=== PATIENT | female | born 1965 | race Caucasian/White ===

== ENCOUNTER 2019-08-03 07:25 | Day surgery (SDC) | payer OTHER ==
[2019-07-28 10:55] VITALS: BMI 21.7
[2019-08-03] MEDS ORDERED: LIDOCAINE HCL 2% (50ML VIAL) INF ONE (07:54)
[2019-08-03] MEDS ORDERED: MIDAZOLAM HCL 2 MG/2 ML SINGLE DOSE VIAL ONE (09:31)
[2019-08-03] MEDS ORDERED: ceFAZolin SODIUM 1 GM VIAL ONE (09:31)
[2019-08-03] MEDS ORDERED: PROPOFOL 20 ML ONE (09:32)
[2019-08-03] MEDS ORDERED: LIDOCAINE HCL/PF 2% SDV 5ML VIAL ONE (09:32)
[2019-08-03] MEDS ORDERED: SODIUM CHLORIDE 0.9% P/F 10 ML VIAL IJ ONE (09:32)
[2019-08-03] MEDS ORDERED: ONDANSETRON 4 MG/2 ML VIAL ONE (09:32)
[2019-08-03] MEDS ORDERED: LIDOCAINE HCL 2% (20ML MULTI-DOSE VIAL) ONE (09:37)
[2019-08-03 10:19] VITALS: TEMP 98
[2019-08-03 10:56] VITALS: BP 122/63; PULSE 80
[2019-08-03] MEDS ORDERED: ONDANSETRON 4 MG/2 ML VIAL IVPUSH PRN (11:52)
[2019-08-03] MEDS ORDERED: oxyCODONE HCL 5 MG TABLET PO PRN (11:52)
--- NOTE | 2019-08-03 11:53 | OP ---
DATE OF OPERATION: 08/03/2019 PREOPERATIVE DIAGNOSIS: Right long finger trigger finger. POSTOPERATIVE DIAGNOSIS: Right long finger trigger finger. OPERATIVE PROCEDURE: Right long trigger finger release. SURGEON: Sean Lucas MD. ANESTHESIA: Local with sedation. COMPLICATIONS: None. ESTIMATED BLOOD LOSS: Minimal. INDICATION FOR PROCEDURE: The patient is a 53-year-old female with the above findings, indicated for operative treatment. Risks, benefits, and alternatives were discussed with the patient at length. Proper informed consent was obtained. PROCEDURE: After proper identification of the patient and correct operative site, patient was brought to the operating room and placed supine on the operating table, all bony prominences well padded. Sedation and local anesthesia were given. Right upper extremity was prepped and draped in the usual sterile fashion. A well-padded tourniquet was placed with sterile prep. Esmarch bandage to exsanguinate the right upper extremity was inflated to 250 mmHg. Longitudinal incision was made over the A1 columba to the long finger. The incision was taken sharply through the skin with blunt and sharp dissection to subcutaneous tissue. A1 columba was divided longitudinally. The patient was asked to flex and extend the finger and no further triggering was noted. Wound was irrigated and repaired with 5-0 plain gut suture. Sterile dressing was applied. The patient was reversed from anesthesia and brought to the recovery room in stable condition. She tolerated the procedure well. SEAN LUCAS M.D. [id number]
[2019-08-03] MEDS ORDERED: LACTATED RINGERS SOLUTION 1,000 ML IV SCH (12:00)
== END 2019-08-03 10:55 | disposition home or self-care (01) ==
LOC: FASU 07:25
PROVIDERS: ATTEND Orthopaedic Surgery Hand Surgery
PROC: 0LN70ZZ Release Right Hand Tendon, Open Approach (ICD-10-PCS; principal; 2019-08-03 09:54)
DX: M65.331 Trigger finger, right middle finger (principal)

== ENCOUNTER 2021-09-08 08:11 | Emergency (ER) | payer OTHER ==
[2021-09-08 08:34] VITALS: BP 153/87; PULSE 101; TEMP 99.2; BMI 20.9
== END 2021-09-08 08:37 | disposition home or self-care (01) ==
LOC: FER 08:11
DX: B02.9 Zoster without complications (principal)
CPT/HCPCS: 99281-25

== ENCOUNTER 2022-09-26 21:34 | Inpatient (IN) | payer OTHER ==
[2022-09-26] MEDS ORDERED: ONDANSETRON 4 MG/2 ML VIAL IVPB ONE (22:03)
[2022-09-26] MEDS ORDERED: morphine CARPU-JECT 4 MG/1 ML DISP.SYRIN IVPUSH ONE (22:03)
[2022-09-26] MEDS ORDERED: SODIUM CHLORIDE 1,000 ML IV ONE (22:03)
[2022-09-26] MEDS ORDERED: PANTOPRAZOLE SODIUM 40 MG VIAL IVPUSH ONE (22:05)
[2022-09-26] MEDS ORDERED: ONDANSETRON 4 MG/2 ML VIAL ONE (22:09)
[2022-09-26] MEDS ORDERED: morphine SULFATE 4 MG/ML VIAL ONE (22:09)
[2022-09-26] MEDS ORDERED: PANTOPRAZOLE SODIUM 40 MG VIAL ONE (22:10)
[2022-09-26] MEDS ORDERED: HYDROmorphone HCl 2 MG/ML VIAL IVPUSH STA (22:26)
[2022-09-26] MEDS ORDERED: HYDROmorphone HCL/PF 1 MG/ML VIAL ONE (22:28)
[2022-09-26 22:34] LABS: ALBUMIN 4.6 g/dl (3.4-5.0); BILIRUBIN,TOTAL 0.6 mg/dl (0.2-1); CALCIUM 9.2 mg/dl (8.5-10); CREATININE 0.9 mg/dl (0.55-1.3); TOT PROT 7.8 g/dl (6.4-8.2)
[2022-09-27 00:12] LABS: HEMATOCRIT 40.2 % (32.4-45.2); HEMOGLOBIN 13.6 GM/dL (10.7-15.3); MCH 30.2 pg (25.7-33.7); MCHC 33.8 g/dl (32.0-36.0); MEAN CELL VOLUME 89.2 fl (80-96); MEAN PLT VOLUME 8.5 fl (7.5-11.1); PLATELET COUNT 232 10^3/uL (134-434); RDW 13.4 % (11.6-15.6); WHITE BLOOD COUNT 13.6 K/mm3 (4.0-10.0)
[2022-09-27] MEDS ORDERED: MAG HYDROX/AL HYDROX/SIMETH 30 ML UNIT-DOSE CUP PO ONE (00:32)
[2022-09-27 00:41] LABS: LACTIC ACID 3.6 mmol/L (0.4-2.0)
[2022-09-27] MEDS ORDERED: MAG HYDROX/AL HYDROX/SIMETH 30 ML UNIT-DOSE CUP ONE (00:41)
[2022-09-27] MEDS ORDERED: SODIUM CHLORIDE 1,000 ML IV ONE (00:43)
[2022-09-27 02:29] LABS: URINE APPEARANCE CLEAR; URINE BILIRUBIN NEGATIVE (NEGATIVE); URINE COLOR YELLOW; URINE GLUCOSE (UA) NEGATIVE (NEGATIVE); URINE KETONE 2+ (NEGATIVE); URINE LEUK ESTERASE NEGATIVE (NEGATIVE); URINE NITRITE NEGATIVE (NEGATIVE); URINE PROTEIN NEGATIVE (NEGATIVE); URINE UROBILINOGEN 0.2 mg/dL (0.2-1.0)
[2022-09-27 03:16] LABS: LACTIC ACID 2.9 mmol/L (0.4-2.0)
[2022-09-27] MEDS ORDERED: PIPERACILLIN/TAZOB 4.5 GM 4.5 GM in DEXTROSE 5%-WATER 100 ML IVPB ONE (04:34)
[2022-09-27] MEDS ORDERED: PIPERACILLIN/TAZOBACTAM 4.5 GM VIAL IVPB ONE (04:36)
[2022-09-27 06:24] LABS: LACTIC ACID 3.9 mmol/L (0.4-2.0)
[2022-09-27] MEDS ORDERED: morphine CARPU-JECT 4 MG/1 ML DISP.SYRIN IVPUSH ONE (07:40)
[2022-09-27] MEDS ORDERED: SODIUM CHLORIDE 1,000 ML IV STA (07:40)
[2022-09-27] MEDS ORDERED: ONDANSETRON 4 MG/2 ML VIAL IVPUSH ONE ×2 (07:40→10:30)
[2022-09-27] MEDS ORDERED: morphine SULFATE 4 MG/ML VIAL ONE (07:44)
[2022-09-27] MEDS ORDERED: ONDANSETRON 4 MG/2 ML VIAL ONE (07:44)
[2022-09-27 11:00] LABS: BASO % 0.1 % (0-2.0); HEMOGLOBIN 11.8 GM/dL (10.7-15.3); MCH 30.9 pg (25.7-33.7); MCHC 34.8 g/dl (32.0-36.0); MEAN CELL VOLUME 88.7 fl (80-96); MEAN PLT VOLUME 8.8 fl (7.5-11.1); MONO % 3.6 % (3.8-10.2); NEUT % 88.3 % (42.8-82.8); PLATELET COUNT 210 10^3/uL (134-434); RBC 3.84 M/mm3 (3.60-5.2); RDW 13.4 % (11.6-15.6); WHITE BLOOD COUNT 12.2 K/mm3 (4.0-10.0)
[2022-09-27] MEDS ORDERED: PANTOPRAZOLE SODIUM 40 MG VIAL IVPUSH ONE (11:24)
[2022-09-27] MEDS ORDERED: BISACODYL 10 MG SUPP.RECT PR ONE (11:25)
[2022-09-27] MEDS: ACETAMINOPHEN 1000 MG/100 ML BAG IVPB PRN ×2 (11:38→16:32)
[2022-09-27] MEDS: KETOROLAC TROMETHAMINE 30 MG/1 ML VIAL IVPUSH PRN ×2 (11:41→18:40)
[2022-09-27] MEDS: SODIUM CHLORIDE 1,000 ML IV SCH (11:42)
[2022-09-27] MEDS: POLYETHYLENE GLYCOL (HEALTHYLAX) 3350 17 GM PACKET PO SCH ×2 (13:08→21:13)
[2022-09-27] MEDS ORDERED: metroNIDAZOLE 250 MG TABLET PO SCH (14:00)
[2022-09-27] MEDS: ONDANSETRON 4 MG/2 ML VIAL IVPUSH PRN (15:31)
[2022-09-27] MEDS ORDERED: MINERAL OIL ENEMA 133 ML ENEMA RC ONE (19:04)
[2022-09-27] MEDS ORDERED: LORazepam 2 MG/ML SDV VIAL IVPUSH ONE (19:45)
[2022-09-27] MEDS: LOSARTAN POTASSIUM 25 MG TABLET PO SCH (21:13)
[2022-09-27] MEDS: AMPICILLIN NA/SULBACTAM NA 3 GM in SODIUM CHLORIDE 100 ML IVPB SCH (21:13)
[2022-09-27] MEDS ORDERED: CIPROFLOXACIN 500 MG TABLET (RESTRICTED TO ID) PO SCH (22:00)
[2022-09-28] MEDS: KETOROLAC TROMETHAMINE 30 MG/1 ML VIAL IVPUSH SCH ×9 (00:38→23:22)
[2022-09-28] MEDS: AMPICILLIN NA/SULBACTAM NA 3 GM in SODIUM CHLORIDE 100 ML IVPB SCH ×4 (02:59→20:24)
[2022-09-28] MEDS: ACETAMINOPHEN 1000 MG/100 ML BAG IVPB PRN (03:39)
[2022-09-28 08:37] LABS: ALBUMIN 3.8 g/dl (3.4-5.0); BILIRUBIN,TOTAL 0.8 mg/dl (0.2-1); CALCIUM 8.5 mg/dl (8.5-10); CREATININE 0.6 mg/dl (0.55-1.3); PHOSPHOROUS 3.2 mg/dl (2.5-4.9); TOT PROT 6.5 g/dl (6.4-8.2)
[2022-09-28 09:29] LABS: BASO % 0.1 % (0-2.0); EOS % 0.1 % (0-4.5); HEMATOCRIT 38.2 % (32.4-45.2); HEMOGLOBIN 13.1 GM/dL (10.7-15.3); LYMPH % 14.6 % (8-40); MCH 30.6 pg (25.7-33.7); MCHC 34.4 g/dl (32.0-36.0); MEAN CELL VOLUME 88.9 fl (80-96); MEAN PLT VOLUME 8.2 fl (7.5-11.1); MONO % 8.9 % (3.8-10.2); NEUT % 76.3 % (42.8-82.8); PLATELET COUNT 216 10^3/uL (134-434); RDW 13.5 % (11.6-15.6); WHITE BLOOD COUNT 10.4 K/mm3 (4.0-10.0)
[2022-09-28] MEDS: ONDANSETRON 4 MG/2 ML VIAL IVPUSH PRN ×2 (10:16→16:26)
[2022-09-28] MEDS: POLYETHYLENE GLYCOL (HEALTHYLAX) 3350 17 GM PACKET PO SCH ×2 (10:17→21:23)
[2022-09-28] MEDS: ATORVASTATIN CA 20 MG TABLET (FP) PO SCH (10:18)
[2022-09-28] MEDS: SODIUM CHLORIDE 1,000 ML IV SCH (13:02)
[2022-09-28] MEDS ORDERED: ACETAMINOPHEN 1000 MG/100 ML BAG IVPB PRN (13:13)
[2022-09-28 14:05] LABS: ERYTHROCYTE SEDIMENTATION RATE 7 mm/hr (0-30)
[2022-09-28] MEDS: LOSARTAN POTASSIUM 25 MG TABLET PO SCH (21:23)
[2022-09-29] MEDS: ONDANSETRON 4 MG/2 ML VIAL IVPUSH PRN (01:46)
[2022-09-29] MEDS: AMPICILLIN NA/SULBACTAM NA 3 GM in SODIUM CHLORIDE 100 ML IVPB SCH ×4 (03:05→21:51)
[2022-09-29] MEDS: KETOROLAC TROMETHAMINE 30 MG/1 ML VIAL IVPUSH SCH ×2 (07:04→09:14)
[2022-09-29 07:43] LABS: CALCIUM 8.6 mg/dl (8.5-10); CREATININE 0.8 mg/dl (0.55-1.3)
[2022-09-29 09:15] LABS: BASO % 0.3 % (0-2.0); HEMATOCRIT 43.6 % (32.4-45.2); HEMOGLOBIN 15.3 GM/dL (10.7-15.3); LYMPH % 16.3 % (8-40); MCHC 35.1 g/dl (32.0-36.0); MEAN CELL VOLUME 88.3 fl (80-96); MEAN PLT VOLUME 8.1 fl (7.5-11.1); MONO % 18.4 % (3.8-10.2); PLATELET COUNT 249 10^3/uL (134-434); RBC 4.94 M/mm3 (3.60-5.2); RDW 13.3 % (11.6-15.6); WHITE BLOOD COUNT 5.1 K/mm3 (4.0-10.0)
[2022-09-29] MEDS: ATORVASTATIN CA 20 MG TABLET (FP) PO SCH (09:15)
[2022-09-29] MEDS ORDERED: ACETAMINOPHEN 1000 MG/100 ML BAG IVPB PRN (09:21)
[2022-09-29] MEDS ORDERED: ENOXAPARIN NA (PORCINE) 40 MG/0.4 ML DISP.SYRIN SQ SCH (10:00)
[2022-09-29] MEDS: KETOROLAC TROMETHAMINE 30 MG/1 ML VIAL IVPUSH PRN (17:05)
[2022-09-29] MEDS: SODIUM CHLORIDE 1,000 ML IV SCH (17:07)
[2022-09-29] MEDS: LOSARTAN POTASSIUM 25 MG TABLET PO SCH (21:58)
[2022-09-30] MEDS: AMPICILLIN NA/SULBACTAM NA 3 GM in SODIUM CHLORIDE 100 ML IVPB SCH ×4 (03:01→20:30)
[2022-09-30 08:23] LABS: CALCIUM 8.4 mg/dl (8.5-10); CREATININE 0.7 mg/dl (0.55-1.3); MAGNESIUM 2.3 mg/dL (1.8-2.4); PHOSPHOROUS 4.1 mg/dl (2.5-4.9)
[2022-09-30 09:10] LABS: BASO % 0.1 % (0-2.0); HEMATOCRIT 38.7 % (32.4-45.2); HEMOGLOBIN 13.8 GM/dL (10.7-15.3); LYMPH % 16.4 % (8-40); MCH 31.5 pg (25.7-33.7); MCHC 35.7 g/dl (32.0-36.0); MEAN CELL VOLUME 88.3 fl (80-96); MEAN PLT VOLUME 8.5 fl (7.5-11.1); NEUT % 65.5 % (42.8-82.8); PLATELET COUNT 243 10^3/uL (134-434); RBC 4.38 M/mm3 (3.60-5.2); RDW 13.2 % (11.6-15.6); WHITE BLOOD COUNT 4.9 K/mm3 (4.0-10.0)
[2022-09-30] MEDS: ONDANSETRON 4 MG/2 ML VIAL IVPUSH PRN (09:26)
[2022-09-30] MEDS: ATORVASTATIN CA 20 MG TABLET (FP) PO SCH (09:26)
[2022-09-30] MEDS: KETOROLAC TROMETHAMINE 30 MG/1 ML VIAL IVPUSH PRN ×2 (09:27→21:48)
[2022-09-30] MEDS: KCL 10 MEQ IVPB 10 MEQ/100 ML INFUS.BAG IVPB SCH ×3 (11:27→15:30)
[2022-09-30] MEDS: LOSARTAN POTASSIUM 25 MG TABLET PO SCH (21:19)
[2022-10-01] MEDS: AMPICILLIN NA/SULBACTAM NA 3 GM in SODIUM CHLORIDE 100 ML IVPB SCH ×4 (02:28→20:44)
[2022-10-01] MEDS: KETOROLAC TROMETHAMINE 30 MG/1 ML VIAL IVPUSH PRN (06:00)
[2022-10-01] MEDS ORDERED: SODIUM CHLORIDE 1,000 ML with POTASSIUM CHLORIDE 20 MEQ IV SCH (11:05)
[2022-10-01] MEDS: SODIUM CHLORIDE 0.9%/KCL 20 MEQ/1,000 ML INFUS.BAG IV SCH (11:24)
[2022-10-01] MEDS: ATORVASTATIN CA 20 MG TABLET (FP) PO SCH (11:24)
[2022-10-01 11:48] LABS: CALCIUM 8.3 mg/dl (8.5-10); CREATININE 0.6 mg/dl (0.55-1.3); MAGNESIUM 2.3 mg/dL (1.8-2.4); PHOSPHOROUS 3.4 mg/dl (2.5-4.9)
[2022-10-01 12:21] LABS: BASO % 0.3 % (0-2.0); EOS % 0.2 % (0-4.5); HEMATOCRIT 38.4 % (32.4-45.2); HEMOGLOBIN 13.3 GM/dL (10.7-15.3); LYMPH % 20.5 % (8-40); MCHC 34.7 g/dl (32.0-36.0); MEAN CELL VOLUME 89.4 fl (80-96); MEAN PLT VOLUME 8.3 fl (7.5-11.1); MONO % 12.1 % (3.8-10.2); NEUT % 66.9 % (42.8-82.8); PLATELET COUNT 233 10^3/uL (134-434); RBC 4.29 M/mm3 (3.60-5.2); RDW 13.2 % (11.6-15.6); WHITE BLOOD COUNT 6.5 K/mm3 (4.0-10.0)
[2022-10-01] MEDS: KCL 10 MEQ IVPB 10 MEQ/100 ML INFUS.BAG IVPB SCH ×2 (17:21→20:43)
[2022-10-01] MEDS: LOSARTAN POTASSIUM 25 MG TABLET PO SCH (21:54)
[2022-10-02] MEDS: AMPICILLIN NA/SULBACTAM NA 3 GM in SODIUM CHLORIDE 100 ML IVPB SCH ×4 (02:00→21:25)
[2022-10-02] MEDS: SODIUM CHLORIDE 0.9%/KCL 20 MEQ/1,000 ML INFUS.BAG IV SCH ×2 (06:29→15:00)
[2022-10-02 08:45] LABS: ALBUMIN 3.3 g/dl (3.4-5.0); CALCIUM 8.4 mg/dl (8.5-10); CREATININE 0.6 mg/dl (0.55-1.3); MAGNESIUM 2.1 mg/dL (1.8-2.4); TOT PROT 6.1 g/dl (6.4-8.2)
[2022-10-02 09:22] LABS: HEMOGLOBIN 13.1 GM/dL (10.7-15.3); MCH 31.1 pg (25.7-33.7); MCHC 34.5 g/dl (32.0-36.0); MEAN CELL VOLUME 89.9 fl (80-96); MEAN PLT VOLUME 8.5 fl (7.5-11.1); PLATELET COUNT 245 10^3/uL (134-434); RBC 4.23 M/mm3 (3.60-5.2); RDW 13.3 % (11.6-15.6); WHITE BLOOD COUNT 8.3 K/mm3 (4.0-10.0)
[2022-10-02] MEDS: ATORVASTATIN CA 20 MG TABLET (FP) PO SCH (09:38)
[2022-10-02] MEDS ORDERED: POTASSIUM CHLORIDE ORAL LIQUID 20 MEQ/15 ML PO ONE (16:40)
[2022-10-02] MEDS ORDERED: MELATONIN 5 MG TABLETS PO PRN (18:12)
[2022-10-02] MEDS: LOSARTAN POTASSIUM 25 MG TABLET PO SCH (21:26)
[2022-10-02] MEDS: KETOROLAC TROMETHAMINE 30 MG/1 ML VIAL IVPUSH PRN (21:27)
[2022-10-03] MEDS: AMPICILLIN NA/SULBACTAM NA 3 GM in SODIUM CHLORIDE 100 ML IVPB SCH ×4 (03:23→21:33)
[2022-10-03 08:19] LABS: ALBUMIN 3.2 g/dl (3.4-5.0); BILIRUBIN,TOTAL 0.9 mg/dl (0.2-1); CALCIUM 8.3 mg/dl (8.5-10); CREATININE 0.5 mg/dl (0.55-1.3); TOT PROT 5.8 g/dl (6.4-8.2)
[2022-10-03] MEDS ORDERED: POTASSIUM CHLORIDE ORAL LIQUID 20 MEQ/15 ML PO ONE (08:48)
[2022-10-03 09:21] LABS: BASO % 0.2 % (0-2.0); EOS % 0.4 % (0-4.5); HEMATOCRIT 38.6 % (32.4-45.2); HEMOGLOBIN 13.1 GM/dL (10.7-15.3); LYMPH % 14.6 % (8-40); MCH 30.4 pg (25.7-33.7); MCHC 33.9 g/dl (32.0-36.0); MEAN CELL VOLUME 89.8 fl (80-96); MEAN PLT VOLUME 7.9 fl (7.5-11.1); MONO % 11.9 % (3.8-10.2); NEUT % 72.9 % (42.8-82.8); PLATELET COUNT 228 10^3/uL (134-434); RBC 4.29 M/mm3 (3.60-5.2); RDW 13.4 % (11.6-15.6); WHITE BLOOD COUNT 8.9 K/mm3 (4.0-10.0)
[2022-10-03] MEDS: ATORVASTATIN CA 20 MG TABLET (FP) PO SCH (09:42)
[2022-10-03] MEDS: SODIUM CHLORIDE 0.9%/KCL 20 MEQ/1,000 ML INFUS.BAG IV SCH (16:21)
[2022-10-03] MEDS: LOSARTAN POTASSIUM 25 MG TABLET PO SCH (21:33)
[2022-10-03] MEDS ORDERED: ACETAMINOPHEN 1000 MG/100 ML BAG IVPB ONE (23:27)
[2022-10-04] MEDS: AMPICILLIN NA/SULBACTAM NA 3 GM in SODIUM CHLORIDE 100 ML IVPB SCH ×4 (02:55→21:33)
[2022-10-04] MEDS: ATORVASTATIN CA 20 MG TABLET (FP) PO SCH (09:36)
[2022-10-04] MEDS ORDERED: KCL 10 MEQ IVPB 10 MEQ/100 ML INFUS.BAG IVPB SCH (15:15)
[2022-10-04] MEDS: SODIUM CHLORIDE 0.9%/KCL 20 MEQ/1,000 ML INFUS.BAG IV SCH (15:23)
[2022-10-04] MEDS ORDERED: ACETAMINOPHEN 1000 MG/100 ML BAG IVPB PRN (15:25)
[2022-10-04] MEDS: KCL 10 MEQ IVPB 10 MEQ/100 ML INFUS.BAG IVPB SCH ×3 (15:50→17:58)
[2022-10-04] MEDS: LOSARTAN POTASSIUM 25 MG TABLET PO SCH (21:33)
[2022-10-05] MEDS: AMPICILLIN NA/SULBACTAM NA 3 GM in SODIUM CHLORIDE 100 ML IVPB SCH ×4 (03:48→21:55)
[2022-10-05 09:17] LABS: ALBUMIN 3.2 g/dl (3.4-5.0); BILIRUBIN,TOTAL 0.7 mg/dl (0.2-1); CALCIUM 8.6 mg/dl (8.5-10); CREATININE 0.5 mg/dl (0.55-1.3); MAGNESIUM 1.7 mg/dL (1.8-2.4); TOT PROT 5.9 g/dl (6.4-8.2)
[2022-10-05] MEDS: ATORVASTATIN CA 20 MG TABLET (FP) PO SCH (09:26)
[2022-10-05] MEDS ORDERED: MAGNESIUM 1GM/D5W - 1 GM/100 ML IVPB IVPB ONE (10:15)
[2022-10-05] MEDS ORDERED: D5-LR+20 MEQ KCL - 20 MEQ/1,000 ML INFUS.BAG IV SCH (10:15)
[2022-10-05] MEDS ORDERED: DEXTROSE 5%-LACTATED RINGERS 1,000 ML with POTASSIUM CHLORIDE 20 MEQ IV SCH (10:39)
[2022-10-05 10:59] LABS: BASO % 0.2 % (0-2.0); EOS % 0.8 % (0-4.5); HEMATOCRIT 38.3 % (32.4-45.2); HEMOGLOBIN 13.1 GM/dL (10.7-15.3); LYMPH % 22.6 % (8-40); MCHC 34.3 g/dl (32.0-36.0); MEAN CELL VOLUME 90.4 fl (80-96); MEAN PLT VOLUME 8.6 fl (7.5-11.1); MONO % 8.8 % (3.8-10.2); NEUT % 67.6 % (42.8-82.8); PLATELET COUNT 254 10^3/uL (134-434); RBC 4.23 M/mm3 (3.60-5.2); RDW 13.2 % (11.6-15.6); WHITE BLOOD COUNT 9.5 K/mm3 (4.0-10.0)
[2022-10-05 11:11] LABS: ALBUMIN 3.4 g/dl (3.4-5.0); BILIRUBIN,TOTAL 0.7 mg/dl (0.2-1); CALCIUM 8.6 mg/dl (8.5-10); CREATININE 0.6 mg/dl (0.55-1.3); TOT PROT 6.1 g/dl (6.4-8.2)
[2022-10-05 12:23] LABS: PHOSPHOROUS 3.1 mg/dl (2.5-4.9)
[2022-10-05 13:58] LABS: VENOUS BASE EXCESS -20.7 mmol/L (-2-2); VENOUS O2 SATURATION 97.9 % (70-80); VENOUS PCO2 30.6 mmHg (38-52)
[2022-10-05 14:03] LABS: VENOUS PH 7.056 (7.310-7.410)
[2022-10-05 14:29] LABS: LACTIC ACID 6.3 mmol/L (0.4-2.0)
[2022-10-05 18:30] LABS: VENOUS BASE EXCESS -7.4 mmol/L (-2-2); VENOUS O2 SATURATION 41.5 % (70-80); VENOUS PCO2 31.2 mmHg (38-52); VENOUS PH 7.35 (7.310-7.410)
[2022-10-05] MEDS ORDERED: DEXTROSE 5%-LACTATED RINGERS 1,000 ML IV SCH (18:30)
[2022-10-05 18:54] LABS: CALCIUM 8.2 mg/dL (8.5-10.1)
[2022-10-05 18:55] LABS: ALBUMIN 3.1 g/dl (3.4-5.0); BLOOD UREA NITROGEN 6.4 mg/dL (7-18)
[2022-10-05 18:58] LABS: CREATININE 0.4 mg/dL (0.55-1.3)
[2022-10-05] MEDS ORDERED: MELATONIN 5 MG TABLETS PO PRN (18:58)
[2022-10-05] MEDS ORDERED: ONDANSETRON 4 MG/2 ML VIAL IVPUSH PRN (18:58)
[2022-10-05 19:00] LABS: BILIRUBIN,TOTAL 0.4 mg/dL (0.2-1); TOT PROT 6.2 g/dl (6.4-8.2)
[2022-10-05 19:39] LABS: MAGNESIUM 1.8 mg/dL (1.8-2.4)
[2022-10-05 19:43] LABS: PHOSPHOROUS 2.4 mg/dL (2.5-4.9)
[2022-10-05] MEDS ORDERED: ACETAMINOPHEN 1000 MG/100 ML BAG IVPB PRN (21:52)
[2022-10-05] MEDS: MUPIROCIN 2% TOPICAL OINTMENT FOR DECOLONIZATION NS SCH (21:55)
[2022-10-05] MEDS ORDERED: CHLORHEXIDINE GLUCONATE 4% CLEANSER FOR DECOLONIZATION TP SCH (22:00)
[2022-10-05] MEDS ORDERED: LOSARTAN POTASSIUM 25 MG TABLET PO SCH (22:00)
[2022-10-06] MEDS: AMPICILLIN NA/SULBACTAM NA 3 GM in SODIUM CHLORIDE 100 ML IVPB SCH ×4 (02:25→21:54)
[2022-10-06 07:40] LABS: BASO % 0.2 % (0-2.0); EOS % 0.7 % (0-4.5); HEMATOCRIT 39.6 % (32.4-45.2); MCH 31.2 pg (25.7-33.7); MCHC 35.4 g/dl (32.0-36.0); MEAN CELL VOLUME 88.2 fl (80-96); MEAN PLT VOLUME 8.2 fl (7.5-11.1); MONO % 11.4 % (3.8-10.2); NEUT % 68.7 % (42.8-82.8); PLATELET COUNT 288 10^3/uL (134-434); RBC 4.48 M/mm3 (3.60-5.2); RDW 12.8 % (11.6-15.6); WHITE BLOOD COUNT 9.2 K/mm3 (4.0-10.0)
[2022-10-06 08:01] LABS: PHOSPHOROUS 2.3 mg/dL (2.5-4.9)
[2022-10-06 09:15] LABS: ALBUMIN 3.1 g/dl (3.4-5.0); BILIRUBIN,TOTAL 0.5 mg/dL (0.2-1); CALCIUM 8.8 mg/dL (8.5-10.1); CREATININE 0.4 mg/dL (0.55-1.3); MAGNESIUM 1.8 mg/dL (1.8-2.4)
[2022-10-06] MEDS: MUPIROCIN 2% TOPICAL OINTMENT FOR DECOLONIZATION NS SCH (09:26)
[2022-10-06] MEDS ORDERED: PANTOPRAZOLE SODIUM 40 MG VIAL IVPUSH SCH (10:00)
[2022-10-06] MEDS ORDERED: MELATONIN 5 MG TABLETS PO PRN (12:17)
[2022-10-06] MEDS ORDERED: ACETAMINOPHEN 1000 MG/100 ML BAG IVPB PRN (12:17)
[2022-10-06] MEDS ORDERED: ONDANSETRON 4 MG/2 ML VIAL IVPUSH PRN (12:17)
[2022-10-06] MEDS: DEXTROSE 5%-LACTATED RINGERS 1,000 ML IV SCH ×2 (12:53→15:45)
[2022-10-06] MEDS: ATORVASTATIN CA 20 MG TABLET (FP) PO SCH ×2 (21:45→21:55)
[2022-10-06] MEDS: LOSARTAN POTASSIUM 25 MG TABLET PO SCH (21:55)
[2022-10-06] MEDS ORDERED: ATORVASTATIN CA 20 MG TABLET (FP) PO SCH (22:00)
[2022-10-06] MEDS ORDERED: CHLORHEXIDINE GLUCONATE 4% CLEANSER FOR DECOLONIZATION TP SCH (22:00)
[2022-10-06] MEDS ORDERED: MUPIROCIN 2% TOPICAL OINTMENT FOR DECOLONIZATION NS SCH (22:00)
[2022-10-07] MEDS: AMPICILLIN NA/SULBACTAM NA 3 GM in SODIUM CHLORIDE 100 ML IVPB SCH ×2 (02:13→09:59)
[2022-10-07 06:10] VITALS: RESP 18
[2022-10-07] MEDS ORDERED: NAPH,MB-DB/K PH,MBDB POWDER PACKET PO ONE (08:00)
[2022-10-07] MEDS ORDERED: PANTOPRAZOLE SODIUM 40 MG VIAL IVPUSH SCH (10:00)
[2022-10-07] MEDS: DEXTROSE 5%-LACTATED RINGERS 1,000 ML IV SCH ×2 (10:00→14:29)
[2022-10-07] MEDS: POLYETHYLENE GLYCOL (HEALTHYLAX) 3350 17 GM PACKET PO SCH (10:01)
[2022-10-07] MEDS: ENOXAPARIN NA (PORCINE) 40 MG/0.4 ML DISP.SYRIN SQ SCH (10:01)
[2022-10-07] MEDS ORDERED: PANTOPRAZOLE 40 MG TABLET PO SCH (10:29)
[2022-10-07 14:31] VITALS: BMI 21.2
[2022-10-07] MEDS: ATORVASTATIN CA 20 MG TABLET (FP) PO SCH (22:17)
[2022-10-07] MEDS: LOSARTAN POTASSIUM 25 MG TABLET PO SCH (22:18)
[2022-10-08 06:15] VITALS: PULSE 83
[2022-10-08] MEDS: DEXTROSE 5%-LACTATED RINGERS 1,000 ML IV SCH (06:16)
[2022-10-08 08:23] LABS: BASO % 0.2 % (0-2.0); HEMATOCRIT 37.4 % (32.4-45.2); HEMOGLOBIN 12.8 GM/dL (10.7-15.3); MCH 30.3 pg (25.7-33.7); MCHC 34.3 g/dl (32.0-36.0); MEAN CELL VOLUME 88.2 fl (80-96); MEAN PLT VOLUME 7.9 fl (7.5-11.1); MONO % 10.8 % (3.8-10.2); PLATELET COUNT 261 10^3/uL (134-434); RBC 4.24 M/mm3 (3.60-5.2); RDW 13.2 % (11.6-15.6); WHITE BLOOD COUNT 7.1 K/mm3 (4.0-10.0)
[2022-10-08 08:39] LABS: CALCIUM 7.9 mg/dL (8.5-10.1)
[2022-10-08 08:40] LABS: ALBUMIN 2.7 g/dl (3.4-5.0); BLOOD UREA NITROGEN 3.8 mg/dL (7-18); MAGNESIUM 1.4 mg/dL (1.8-2.4)
[2022-10-08 08:43] LABS: CREATININE 0.6 mg/dL (0.55-1.3); PHOSPHOROUS 3.4 mg/dL (2.5-4.9)
[2022-10-08 08:45] LABS: BILIRUBIN,TOTAL 0.3 mg/dL (0.2-1); TOT PROT 5.3 g/dl (6.4-8.2)
[2022-10-08] MEDS ORDERED: MAGNESIUM 1GM/D5W 100ML - 100 ML IVPB IVPB ONE ×2 (09:15→13:00)
[2022-10-08] MEDS ORDERED: KCL 10 MEQ IVPB 10 MEQ/100 ML INFUS.BAG IVPB SCH (09:15)
[2022-10-08] MEDS ORDERED: POTASSIUM CHLORIDE TABS 20 MEQ TABLET.ER (FP) PO ONE (09:15)
[2022-10-08 09:18] VITALS: BP 149/84; TEMP 98.9
[2022-10-08] MEDS ORDERED: ZINC OXIDE/PANTHENOL/VITAMIN E 56 GM TUBE TP SCH (10:00)
[2022-10-08] MEDS: ENOXAPARIN NA (PORCINE) 40 MG/0.4 ML DISP.SYRIN SQ SCH (10:04)
[2022-10-08] MEDS: POLYETHYLENE GLYCOL (HEALTHYLAX) 3350 17 GM PACKET PO SCH (10:04)
[2022-10-08] MEDS ORDERED: POTASSIUM CHLORIDE ORAL LIQUID 20 MEQ/15 ML PO ONE (13:00)
== END 2022-10-08 14:51 | disposition home or self-care (01) | DRG 244 ==
LOC: FER 21:34 → UNDOADMIN 09-27 06:47 → FM/S 09-27 06:47 → INTOOBSV 09-27 11:18 → OBSVTOIN 09-29 12:45 → JICU 10-05 18:14 → J7W 10-06 14:12
PROVIDERS: ADMIT Internal Medicine; ATTEND Internal Medicine
DX: K57.92 Diverticulitis of intestine, part unspecified, without perforation or abscess without bleeding (principal); K56.600 Partial intestinal obstruction, unspecified as to cause; K59.00 Constipation, unspecified; I10 Essential (primary) hypertension; E78.5 Hyperlipidemia, unspecified; E87.6 Hypokalemia; E83.42 Hypomagnesemia; E87.20 Acidosis, unspecified
CPT/HCPCS: 36415; 71046-TC-FY; 74018-TC-FY; 74019-TC-FY; 74177-TC; 74250-TC-FY; 80048; 80053; 81003; 82550; 82728; 82803; 82962; 83605; 83690; 83735; 83880; 84100; 85025; 85027; 85651; 86140; 93005; 99285-25; C9803-CS; G0378; Q9967; U0003; U0005

== ENCOUNTER 2022-10-12 19:29 | Inpatient (IN) | payer OTHER ==
[2022-10-12] MEDS ORDERED: ONDANSETRON 4 MG/2 ML VIAL IVPUSH ONE (19:46)
[2022-10-12] MEDS ORDERED: ACETAMINOPHEN 1000 MG/100 ML BAG IVPB ONE (19:46)
[2022-10-12] MEDS ORDERED: SODIUM CHLORIDE 0.9% 500 ML INFUS.BAG IV ONE ×2 (19:46→22:15)
[2022-10-12] MEDS ORDERED: ACETAMINOPHEN INJECTION 100 ML IVPB ONE (20:06)
[2022-10-12] MEDS ORDERED: ONDANSETRON 4 MG/2 ML VIAL ONE (20:06)
[2022-10-12] MEDS ORDERED: morphine CARPU-JECT 2 MG/1 ML DISP.SYRIN IVPUSH ONE ×2 (20:17→21:57)
[2022-10-12 20:28] LABS: HEMOGLOBIN 12.8 GM/dL (10.7-15.3); MCHC 33.7 g/dl (32.0-36.0); MEAN CELL VOLUME 89.2 fl (80-96); MEAN PLT VOLUME 7.6 fl (7.5-11.1); PLATELET COUNT 437 10^3/uL (134-434); RBC 4.26 M/mm3 (3.60-5.2); RDW 13.8 % (11.6-15.6); WHITE BLOOD COUNT 14.3 K/mm3 (4.0-10.0)
[2022-10-12 20:49] LABS: BLOOD UREA NITROGEN 12.4 mg/dL (7-18); MAGNESIUM 1.7 mg/dL (1.8-2.4)
[2022-10-12 20:51] LABS: CREATININE 0.7 mg/dL (0.55-1.3)
[2022-10-12 20:53] LABS: BILIRUBIN,TOTAL 0.4 mg/dL (0.2-1); TOT PROT 7.2 g/dl (6.4-8.2)
[2022-10-12] MEDS ORDERED: MAGNESIUM SULF 50% (8.12 MEQ/2 ML-1 GM VIAL) IVPB ONE (21:04)
[2022-10-12] MEDS ORDERED: AMPICILLIN NA/SULBACTAM NA 1.5 GM in SODIUM CHLORIDE 100 ML IVPB ONE (21:14)
[2022-10-12 21:15] LABS: ANISOCYTOSIS 0; MACROCYTOSIS 0
[2022-10-12] MEDS ORDERED: MAGNESIUM SULFATE IN WATER 2 GM/50 ML IVPB IVPB ONE (21:21)
[2022-10-12 22:14] LABS: ALBUMIN 3.8 g/dl (3.4-5.0); CALCIUM 9.7 mg/dL (8.5-10.1); LACTIC ACID 3.6 mmol/L (0.4-2.0)
[2022-10-12 22:20] LABS: URINE APPEARANCE CLEAR; URINE BILIRUBIN NEGATIVE (NEGATIVE); URINE COLOR YELLOW; URINE GLUCOSE (UA) NEGATIVE (NEGATIVE); URINE KETONE 1+ (NEGATIVE); URINE LEUK ESTERASE NEGATIVE (NEGATIVE); URINE NITRITE NEGATIVE (NEGATIVE); URINE PROTEIN NEGATIVE (NEGATIVE); URINE UROBILINOGEN 0.2 mg/dL (0.2-1.0)
[2022-10-12 22:50] LABS: COCAINE, UR NEGATIVE (NEGATIVE); METHADONE, UR NEGATIVE (NEGATIVE); URINE BENZODIAZEPINES NEGATIVE (NEGATIVE)
[2022-10-12 22:51] LABS: PHENCYCLIDINE,URINE NEGATIVE (NEGATIVE)
[2022-10-12 22:52] LABS: OPIATES, URI POSITIVE (NEGATIVE); URINE AMPHETAMINES NEGATIVE (NEGATIVE); URINE BARBITURATES NEGATIVE (NEGATIVE)
[2022-10-12 23:16] LABS: BLOOD UREA NITROGEN 9.1 mg/dL (7-18)
[2022-10-12 23:19] LABS: CREATININE 0.4 mg/dL (0.55-1.3)
[2022-10-12 23:38] LABS: CALCIUM 8.2 mg/dL (8.5-10.1)
[2022-10-13] MEDS ORDERED: KETOROLAC TROMETHAMINE 30 MG/1 ML VIAL ONE (01:11)
[2022-10-13] MEDS ORDERED: POLYETHYLENE GLYCOL (HEALTHYLAX) 3350 17 GM PACKET PO SCH ×2 (01:15→07:45)
[2022-10-13] MEDS: KETOROLAC TROMETHAMINE 30 MG/1 ML VIAL IVPUSH PRN ×3 (01:16→22:29)
[2022-10-13] MEDS: ACETAMINOPHEN 1000 MG/100 ML BAG IVPB PRN ×2 (09:59→18:38)
[2022-10-13] MEDS: ENOXAPARIN NA (PORCINE) 40 MG/0.4 ML DISP.SYRIN SQ SCH (10:17)
[2022-10-13] MEDS: LACTATED RINGERS SOLUTION 1,000 ML/1,000 ML INFUS.BAG IV SCH ×2 (10:17→22:42)
[2022-10-13] MEDS: CEFTRIAXONE 1 GM in DEXTROSE 5%-WATER - 50 ML IVPB SCH (10:47)
[2022-10-13 11:56] LABS: BASO % 0.2 % (0-2.0); EOS % 0.1 % (0-4.5); HEMATOCRIT 37.7 % (32.4-45.2); HEMOGLOBIN 12.7 GM/dL (10.7-15.3); LYMPH % 7.5 % (8-40); MCH 30.1 pg (25.7-33.7); MCHC 33.7 g/dl (32.0-36.0); MEAN CELL VOLUME 89.4 fl (80-96); MEAN PLT VOLUME 8.1 fl (7.5-11.1); MONO % 7.7 % (3.8-10.2); NEUT % 84.5 % (42.8-82.8); PLATELET COUNT 418 10^3/uL (134-434); RBC 4.22 M/mm3 (3.60-5.2); RDW 13.6 % (11.6-15.6)
[2022-10-13 11:59] LABS: CHLORIDE 105 mmol/L (98-107); SODIUM 136 mmol/L (136-145)
[2022-10-13 12:00] LABS: MAGNESIUM 2.4 mg/dL (1.8-2.4)
[2022-10-13 12:01] LABS: ALBUMIN 3.3 g/dl (3.4-5.0); ANION GAP 6 MMOL/L (8-16); BLOOD UREA NITROGEN 7.4 mg/dL (7-18); CALCIUM 8.9 mg/dL (8.5-10.1); CO2 24 mmol/L (21-32)
[2022-10-13 12:02] LABS: GLUCOSE,RANDOM 115 mg/dL (74-106)
[2022-10-13 12:04] LABS: CREATININE 0.5 mg/dL (0.55-1.3); SGOT/AST 29 U/L (15-37); SGPT/ALT 59 U/L (13-61)
[2022-10-13 12:05] LABS: BILIRUBIN,DIRECT 0.1 mg/dL (0.0-0.2); TOT PROT 6.4 g/dl (6.4-8.2)
[2022-10-13 12:07] LABS: BILIRUBIN,TOTAL 0.4 mg/dL (0.2-1)
[2022-10-13 12:08] LABS: ALK PHOS 46 U/L (45-117)
[2022-10-13 12:36] LABS: ERYTHROCYTE SEDIMENTATION RATE 12 mm/hr (0-30)
[2022-10-14] MEDS: ONDANSETRON 4 MG/2 ML VIAL IVPUSH PRN ×2 (05:41→12:55)
[2022-10-14] MEDS: KETOROLAC TROMETHAMINE 30 MG/1 ML VIAL IVPUSH PRN ×3 (06:46→20:57)
[2022-10-14 09:08] LABS: BASO % 0.2 % (0-2.0); EOS % 0.1 % (0-4.5); HEMATOCRIT 38.2 % (32.4-45.2); HEMOGLOBIN 13.1 GM/dL (10.7-15.3); LYMPH % 12.5 % (8-40); MCH 30.7 pg (25.7-33.7); MCHC 34.3 g/dl (32.0-36.0); MEAN CELL VOLUME 89.5 fl (80-96); MEAN PLT VOLUME 7.8 fl (7.5-11.1); MONO % 11.7 % (3.8-10.2); NEUT % 75.5 % (42.8-82.8); PLATELET COUNT 432 10^3/uL (134-434); RBC 4.26 M/mm3 (3.60-5.2); WHITE BLOOD COUNT 8.7 K/mm3 (4.0-10.0)
[2022-10-14 09:48] LABS: ALBUMIN 3.1 g/dl (3.4-5.0)
[2022-10-14 09:49] LABS: CALCIUM 8.8 mg/dL (8.5-10.1)
[2022-10-14 09:50] LABS: BLOOD UREA NITROGEN 12.7 mg/dL (7-18); MAGNESIUM 2.1 mg/dL (1.8-2.4)
[2022-10-14 09:53] LABS: PHOSPHOROUS 4.4 mg/dL (2.5-4.9)
[2022-10-14 09:55] LABS: CREATININE 0.5 mg/dL (0.55-1.3)
[2022-10-14 09:59] LABS: BILIRUBIN,TOTAL 1.1 mg/dL (0.2-1)
[2022-10-14] MEDS ORDERED: ACETAMINOPHEN 1000 MG/100 ML BAG IVPB PRN (10:21)
[2022-10-14] MEDS: CEFTRIAXONE 1 GM in DEXTROSE 5%-WATER - 50 ML IVPB SCH (10:25)
[2022-10-14] MEDS: ENOXAPARIN NA (PORCINE) 40 MG/0.4 ML DISP.SYRIN SQ SCH (10:25)
[2022-10-14] MEDS: LACTATED RINGERS SOLUTION 1,000 ML/1,000 ML INFUS.BAG IV SCH ×2 (10:26→16:21)
[2022-10-14] MEDS ORDERED: FAMOTIDINE 20 MG/50 ML IVPB 20 MG/50 ML MG IVPB ONE ×2 (10:45→13:30)
[2022-10-15] MEDS: KETOROLAC TROMETHAMINE 30 MG/1 ML VIAL IVPUSH PRN (03:24)
[2022-10-15 09:19] LABS: BASO % 0.3 % (0-2.0); EOS % 0.6 % (0-4.5); HEMATOCRIT 35.6 % (32.4-45.2); HEMOGLOBIN 12.2 GM/dL (10.7-15.3); LYMPH % 16.8 % (8-40); MCH 30.8 pg (25.7-33.7); MCHC 34.2 g/dl (32.0-36.0); MEAN CELL VOLUME 90.1 fl (80-96); MEAN PLT VOLUME 7.9 fl (7.5-11.1); MONO % 13.8 % (3.8-10.2); NEUT % 68.5 % (42.8-82.8); PLATELET COUNT 360 10^3/uL (134-434); RBC 3.95 M/mm3 (3.60-5.2); RDW 13.8 % (11.6-15.6); WHITE BLOOD COUNT 6.2 K/mm3 (4.0-10.0)
[2022-10-15 09:43] LABS: CALCIUM 8.3 mg/dL (8.5-10.1); MAGNESIUM 1.9 mg/dL (1.8-2.4)
[2022-10-15 09:44] LABS: ALBUMIN 2.8 g/dl (3.4-5.0)
[2022-10-15 09:45] LABS: BILIRUBIN,TOTAL 0.5 mg/dL (0.2-1)
[2022-10-15 09:46] LABS: TOT PROT 5.6 g/dl (6.4-8.2)
[2022-10-15 09:47] LABS: CREATININE 0.6 mg/dL (0.55-1.3); PHOSPHOROUS 3.4 mg/dL (2.5-4.9)
[2022-10-15] MEDS ORDERED: MIDAZOLAM HCL 2 MG/2 ML SINGLE DOSE VIAL ONE (10:50)
[2022-10-15] MEDS ORDERED: SUCCINYLCHOLINE CHLORIDE 200 MG/10 ML SYRINGE ONE (10:50)
[2022-10-15] MEDS ORDERED: PROPOFOL 20 ML ONE (10:50)
[2022-10-15] MEDS ORDERED: LIDOCAINE HCL/PF 2% SDV 5ML VIAL ONE (10:51)
[2022-10-15] MEDS ORDERED: ceFAZolin SODIUM 1 GM VIAL ONE (11:54)
[2022-10-15] MEDS ORDERED: ROCURONIUM BROMIDE 50 MG/5 ML SYRINGE ONE (11:57)
[2022-10-15] MEDS ORDERED: DEXAMETHASONE SOD PHOSPHATE 4 MG/1 ML VIAL ONE ×2 (12:03→13:27)
[2022-10-15] MEDS ORDERED: ONDANSETRON 4 MG/2 ML VIAL ONE (12:03)
[2022-10-15] MEDS ORDERED: ceFAZolin SODIUM 1 GM VIAL IVPB ONE (12:06)
[2022-10-15] MEDS ORDERED: HYDROmorphone HCl 2 MG/ML VIAL ONE (12:07)
[2022-10-15] MEDS ORDERED: BUPIVACAINE HCL/PF 0.25% (2.5MG/ML) 10 ML VIAL ONE (12:14)
[2022-10-15] MEDS ORDERED: NEOSTIGMINE METHYLSULFATE 0.5 MG/1 ML - 10 ML MDV ONE (13:15)
[2022-10-15] MEDS ORDERED: KETOROLAC TROMETHAMINE 30 MG/1 ML VIAL IVPUSH PRN (13:44)
[2022-10-15] MEDS ORDERED: ONDANSETRON 4 MG/2 ML VIAL IVPUSH PRN (13:44)
[2022-10-15] MEDS: CEFTRIAXONE 1 GM in DEXTROSE 5%-WATER - 50 ML IVPB SCH (14:43)
[2022-10-15] MEDS: LACTATED RINGERS SOLUTION 1,000 ML/1,000 ML INFUS.BAG IV SCH ×2 (14:43→19:01)
[2022-10-15] MEDS: ENOXAPARIN NA (PORCINE) 40 MG/0.4 ML DISP.SYRIN SQ SCH (14:43)
[2022-10-15] MEDS: PHENOL 177 ML SPRAY BOTTLE MM PRN (20:57)
[2022-10-15] MEDS: ACETAMINOPHEN 1000 MG/100 ML BAG IVPB PRN (22:56)
[2022-10-16] VITALS: BMI 19.8
[2022-10-16] MEDS: ACETAMINOPHEN 1000 MG/100 ML BAG IVPB PRN (07:08)
[2022-10-16 08:06] LABS: BASO % 0.1 % (0-2.0); HEMATOCRIT 32.4 % (32.4-45.2); HEMOGLOBIN 11.4 GM/dL (10.7-15.3); LYMPH % 12.5 % (8-40); MCH 31.4 pg (25.7-33.7); MCHC 35.1 g/dl (32.0-36.0); MEAN CELL VOLUME 89.5 fl (80-96); MONO % 11.8 % (3.8-10.2); NEUT % 75.6 % (42.8-82.8); PLATELET COUNT 327 10^3/uL (134-434); RBC 3.62 M/mm3 (3.60-5.2); RDW 13.8 % (11.6-15.6); WHITE BLOOD COUNT 7.7 K/mm3 (4.0-10.0)
[2022-10-16] MEDS: ENOXAPARIN NA (PORCINE) 40 MG/0.4 ML DISP.SYRIN SQ SCH (09:29)
[2022-10-16 10:29] LABS: CALCIUM 8.4 mg/dL (8.5-10.1)
[2022-10-16 10:30] LABS: BLOOD UREA NITROGEN 9.7 mg/dL (7-18); MAGNESIUM 1.8 mg/dL (1.8-2.4)
[2022-10-16 10:33] LABS: CREATININE 0.4 mg/dL (0.55-1.3)
[2022-10-16] MEDS ORDERED: PANTOPRAZOLE SODIUM 40 MG VIAL IVPUSH ONE (11:22)
[2022-10-16] MEDS: LACTATED RINGERS SOLUTION 1,000 ML/1,000 ML INFUS.BAG IV SCH (17:57)
[2022-10-16] MEDS: PHENOL 177 ML SPRAY BOTTLE MM PRN (17:57)
[2022-10-17] MEDS ORDERED: ACETAMINOPHEN 1000 MG/100 ML BAG IVPB PRN (07:27)
[2022-10-17] MEDS: ENOXAPARIN NA (PORCINE) 40 MG/0.4 ML DISP.SYRIN SQ SCH (10:34)
[2022-10-17] MEDS: AMINO ACIDS 4.25%/D5W 1,000 ML IV SCH (17:13)
[2022-10-18] MEDS: AMINO ACIDS 4.25%/D5W 1,000 ML IV SCH ×3 (06:02→17:50)
[2022-10-18 09:54] LABS: ALBUMIN 2.8 g/dl (3.4-5.0); BLOOD UREA NITROGEN 10.8 mg/dL (7-18); CALCIUM 8.8 mg/dL (8.5-10.1); MAGNESIUM 1.8 mg/dL (1.8-2.4)
[2022-10-18 09:55] LABS: BASO % 0.5 % (0-2.0); EOS % 1.3 % (0-4.5); HEMATOCRIT 33.2 % (32.4-45.2); HEMOGLOBIN 11.8 GM/dL (10.7-15.3); LYMPH % 21.9 % (8-40); MCH 31.6 pg (25.7-33.7); MCHC 35.4 g/dl (32.0-36.0); MEAN CELL VOLUME 89.1 fl (80-96); MEAN PLT VOLUME 7.9 fl (7.5-11.1); MONO % 9.2 % (3.8-10.2); NEUT % 67.1 % (42.8-82.8); PLATELET COUNT 300 10^3/uL (134-434); RBC 3.73 M/mm3 (3.60-5.2); RDW 13.5 % (11.6-15.6); WHITE BLOOD COUNT 6.4 K/mm3 (4.0-10.0)
[2022-10-18 09:56] LABS: CREATININE 0.4 mg/dL (0.55-1.3)
[2022-10-18 09:58] LABS: BILIRUBIN,TOTAL 0.3 mg/dL (0.2-1)
[2022-10-18 09:59] LABS: TOT PROT 5.6 g/dl (6.4-8.2)
[2022-10-18] MEDS ORDERED: POTASSIUM CHLORIDE ORAL LIQUID 20 MEQ/15 ML PO ONE (11:07)
[2022-10-18] MEDS: LACTATED RINGERS SOLUTION 1,000 ML/1,000 ML INFUS.BAG IV SCH (11:51)
[2022-10-18] MEDS: ENOXAPARIN NA (PORCINE) 40 MG/0.4 ML DISP.SYRIN SQ SCH (11:54)
[2022-10-18] MEDS ORDERED: ACETAMINOPHEN 325 MG TABLET (FP) PO PRN (14:35)
[2022-10-18] MEDS: LOSARTAN POTASSIUM 25 MG TABLET PO SCH (22:49)
[2022-10-19] MEDS: AMINO ACIDS 4.25%/D5W 1,000 ML IV SCH (03:00)
[2022-10-19 09:27] LABS: BASO % 0.6 % (0-2.0); EOS % 0.9 % (0-4.5); HEMATOCRIT 40.4 % (32.4-45.2); HEMOGLOBIN 13.8 GM/dL (10.7-15.3); LYMPH % 23.2 % (8-40); MCH 30.6 pg (25.7-33.7); MCHC 34.1 g/dl (32.0-36.0); MEAN CELL VOLUME 89.8 fl (80-96); MEAN PLT VOLUME 7.2 fl (7.5-11.1); MONO % 7.6 % (3.8-10.2); NEUT % 67.7 % (42.8-82.8); PLATELET COUNT 330 10^3/uL (134-434); RDW 14.1 % (11.6-15.6)
[2022-10-19 09:48] LABS: BLOOD UREA NITROGEN 9.2 mg/dL (7-18); CALCIUM 9.6 mg/dL (8.5-10.1)
[2022-10-19 09:51] LABS: CREATININE 0.6 mg/dL (0.55-1.3)
[2022-10-19 09:52] LABS: BILIRUBIN,TOTAL 0.3 mg/dL (0.2-1); TOT PROT 6.7 g/dl (6.4-8.2)
[2022-10-19 09:54] LABS: ALBUMIN 3.4 g/dl (3.4-5.0)
[2022-10-19] MEDS: ENOXAPARIN NA (PORCINE) 40 MG/0.4 ML DISP.SYRIN SQ SCH (10:07)
[2022-10-19] MEDS: LOSARTAN POTASSIUM 25 MG TABLET PO SCH (22:07)
[2022-10-20 06:05] VITALS: BP 118/73; PULSE 85; RESP 18; TEMP 97.8
[2022-10-20 09:36] LABS: BASO % 0.5 % (0-2.0); EOS % 1.2 % (0-4.5); HEMATOCRIT 40.5 % (32.4-45.2); HEMOGLOBIN 13.5 GM/dL (10.7-15.3); LYMPH % 28.8 % (8-40); MCH 30.3 pg (25.7-33.7); MCHC 33.4 g/dl (32.0-36.0); MEAN CELL VOLUME 90.6 fl (80-96); MEAN PLT VOLUME 7.3 fl (7.5-11.1); MONO % 7.1 % (3.8-10.2); NEUT % 62.4 % (42.8-82.8); PLATELET COUNT 343 10^3/uL (134-434); RBC 4.47 M/mm3 (3.60-5.2); RDW 14.1 % (11.6-15.6); WHITE BLOOD COUNT 5.9 K/mm3 (4.0-10.0)
[2022-10-20] MEDS: ENOXAPARIN NA (PORCINE) 40 MG/0.4 ML DISP.SYRIN SQ SCH (10:38)
[2022-10-20 11:26] LABS: CALCIUM 9.4 mg/dL (8.5-10.1)
[2022-10-20 11:27] LABS: MAGNESIUM 1.9 mg/dL (1.8-2.4)
[2022-10-20 11:28] LABS: ALBUMIN 3.4 g/dl (3.4-5.0)
[2022-10-20 11:30] LABS: CREATININE 0.7 mg/dL (0.55-1.3)
[2022-10-20 11:31] LABS: TOT PROT 6.8 g/dl (6.4-8.2)
[2022-10-20 11:33] LABS: BILIRUBIN,TOTAL 0.6 mg/dL (0.2-1)
== END 2022-10-20 12:45 | disposition home or self-care (01) | DRG 224 ==
LOC: JER 19:29 → JERBED 23:55 → J8W 10-13 02:10 → OBSVTOIN 10-14 09:01
PROVIDERS: ADMIT Internal Medicine; ATTEND Nurse Practitioner Family
PROC: 0DN84ZZ Release Small Intestine, Percutaneous Endoscopic Approach (ICD-10-PCS; principal; 2022-10-15 12:00)
PROC: 3E023BZ Introduction of Anesthetic Agent into Muscle, Percutaneous Approach (ICD-10-PCS; 2022-10-15 12:00)
DX: K56.50 Intestinal adhesions [bands], unspecified as to partial versus complete obstruction (principal); E87.20 Acidosis, unspecified; R18.8 Other ascites; Z68.1 Body mass index [BMI] 19.9 or less, adult; I10 Essential (primary) hypertension; E78.5 Hyperlipidemia, unspecified; K52.9 Noninfective gastroenteritis and colitis, unspecified; R11.10 Vomiting, unspecified; D72.829 Elevated white blood cell count, unspecified; R74.01 Elevation of levels of liver transaminase levels; E86.0 Dehydration; K57.30 Diverticulosis of large intestine without perforation or abscess without bleeding
CPT/HCPCS: 0241U-QW; 36415; 74019-TC-FY; 74174-TC; 74177-TC; 80048; 80053; 80076; 80307; 81003; 82272; 82550; 82962; 83605; 83690; 83735; 84100; 85025; 85651; 86140; 86850; 86900; 86901; 87086; 93005; 93010; 94760; 99285-25; G0378; Q9967